=== PATIENT | female | born 1955 | race Caucasian/White ===

== ENCOUNTER 2018-05-27 11:18 | Day surgery (SDC) | payer BC ==
[~2018-05-27 11:18] MED LIST: Lactated Ringers 1,000 ML IV SCH; Lidocaine 2% 5 ML SDV ONE; Propofol 200 MG/20 ML SDV ONE; Sodium Chloride 0.9% 10 ML Syringe FLUSH PRN; Sodium Chloride 0.9% 2.5 ML Syringe FLUSH PRN; fentaNYL 100 MCG/2 ML SDV ONE
--- NOTE | 2018-05-27 12:03 | PCM.PREANE ---
Preanesthetic Assessment - Anesthesia/Transfusion/Family Hx Anesthesia History: Prior Anesthesia Without Reaction Other Type of Anesthesia Reaction Comment: Denies any known problem in past, hx : motion sickness Family History of Anesthesia Reaction: No Transfusion History: No Prior Transfusion(s) - Review of Systems General: No Symptoms Pulmonary: No Symptoms Cardiovascular: No Symptoms Gastrointestinal: No Symptoms Neurological: No Symptoms Other: Reports: None - Physical Assessment NPO Status Date: 05/26/18 Height: 5 ft 9 in Weight: 103.873 kg ASA Class: 2 Mental Status: Alert & Oriented x3 Airway Class: Mallampati = 1 Dentition: Reports: Normal Dentition ROM/Head Extension: Full Lungs: Clear to Auscultation, Normal Respiratory Effort Cardiovascular: Regular Rate, Regular Rhythm - Allergies Allergies/Adverse Reactions: Allergies Allergy/AdvReac Type Severity Reaction Status Date / Time Sulfa (Sulfonamide Allergy Itching Verified 05/25/18 16:48 Antibiotics) Oral pill to treat toenail Allergy Cannot Uncoded 05/25/18 16:48 fungus Remember - Blood Blood Available: No - Anesthesia Plan Pre-Op Medication Ordered: None - Acknowledgements Anesthesia Type Planned: MAC Pt an Appropriate Candidate for the Planned Anesthesia: Yes Alternatives and Risks of Anesthesia Discussed w Pt/Guardian: Yes Pt/Guardian Understands and Agrees with Anesthesia Plan: Yes Additional Comments: PMH: gerd, thyroid replacement PLAN: MAC/TIVA PreAnesthesia Questionnaire HEENT History: Reports: Allergic Rhinitis, Cataract, Retinal Detachment Other HEENT History: Reports several eye surgeries, current eye drops decreasing use of Prednisolone Sod Phos 1% 1 drop Left Eye every other day, Reports chronic nasal congestion from external allergies Cardiovascular History: Reports: None Respiratory History: Reports: None Other Respiratory History: 8-10 yr history of smoking, Quit almost 40 yrs ago Gastrointestinal History: Reports: Colon Polyp, Diverticulosis, GERD Other Gastrointestinal History: Occasional Heartburn/reflux, treat Pepcid AC OTC Genitourinary History: Reports: None 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 Other OB/BYN History: as above history Hysterectomy Musculoskeletal History: Reports: None Other Musculoskeletal History: hx: fractured foot Neurological History: Reports: None Psychiatric History: Reports: None Endocrine/Metabolic History: Reports: Hypothyroidism, Obesity/BMI 30+ Hematologic History: Reports: None Immunologic History: Reports: None Oncologic (Cancer) History: Reports: None Dermatologic History: Reports: Other (See Below) Other Dermatologic History: currently has a scalp lesion- possible fungus ( using medicated shampoo) - Past Surgical History Head Surgeries/Procedures: Reports: None HEENT Surgical History: Reports: Cataract Surgery, Laser Surgery GI Surgical History: Reports: Appendectomy, Colonoscopy Female Surgical History: Reports: Hysterectomy - SUBSTANCE USE Smoking Status *Q: Former Smoker Tobacco Use Within Last Twelve Months: No Recreational Drug Use History: No - HOME MEDS Home Medications: Home Meds Levothyroxine Sodium [Synthroid] 25 mcg PO ASDIRECTED 05/24/18 [History] Levothyroxine 50 mcg PO ASDIRECTED 05/25/18 [History] - CURRENT (IN HOUSE) MEDS Current Meds: Current Medications Lactated Ringer's (Ringers, Lactated) 1,000 mls @ 125 mls/hr IV ASDIRECTED LESLY Sodium Chloride (Saline Flush) 10 ml FLUSH ASDIRECTED PRN PRN Reason: Keep Vein Open Sodium Chloride (Saline Flush) 2.5 ml FLUSH ASDIRECTED PRN PRN Reason: Keep Vein Open Sodium Chloride (Saline Flush) 10 ml FLUSH ASDIRECTED PRN PRN Reason: Keep Vein Open Sodium Chloride (Saline Flush) 2.5 ml FLUSH ASDIRECTED PRN PRN Reason: Keep Vein Open Discontinued Medications Fentanyl (Sublimaze) Confirm Administered Dose 100 mcg .ROUTE .STK-MED ONE Stop: 05/27/18 08:34 Lidocaine (Xylocaine-Mpf 2%) Confirm Administered Dose 5 ml .ROUTE .STK-MED ONE Stop: 05/27/18 08:34 Propofol (Diprivan 20 Ml) Confirm Administered Dose 400 mg .ROUTE .STK-MED ONE Stop: 05/27/18 08:34
--- NOTE | 2018-05-27 13:28 | PCM.OPNOTE ---
- General Post-Op/Procedure Note Date of Surgery/Procedure: 05/27/18 Operative Procedure(s): Colonoscopy Findings: normal Colonoscopy Pre Op Diagnosis: History of colon polyp Post-Op Diagnosis: Normal colonoscopy Anesthesia Technique: MAC Primary Surgeon: Haylee Childress Condition: Good
--- NOTE | 2018-05-27 13:43 | PCM.POSTAN ---
POST ANESTHESIA ASSESSMENT - MENTAL STATUS Mental Status: Alert, Oriented - RESPIRATORY Respiratory Status: Respiratory Rate WNL, Airway Patent, O2 Saturation Stable - CARDIOVASCULAR CV Status: Pulse Rate WNL, Blood Pressure Stable - GASTROINTESTINAL GI Status: No Symptoms - POST OP HYDRATION Hydration Status: Adequate & Stable
--- NOTE | 2018-05-27 13:48 | PCM48HPAN ---
Post Anesthesia Note - EVALUATION WITHIN 48HRS OF ANESTHETIC Vital Signs in Normal Range: Yes Patient Participated in Evaluation: Yes Respiratory Function Stable: Yes Airway Patent: Yes Cardiovascular Function Stable: Yes Hydration Status Stable: Yes Pain Control Satisfactory: Yes Nausea and Vomiting Control Satisfactory: Yes Mental Status Recovered: Yes Resp Rate: 17
[2018-05-27 14:46] VITALS: BP 117/63
--- NOTE | 2018-05-28 13:54 | OR ---
SURGEON: YOLANDA SPIVEY MD DATE OF PROCEDURE: 05/27/2018 PREOPERATIVE DIAGNOSIS: History of colon polyps. POSTOPERATIVE DIAGNOSIS: Diverticulosis PROCEDURE PERFORMED: Screening colonoscopy. ANESTHESIA: MAC. INSTRUMENT USED: Olympus colonoscope. EXTENT OF EXAM: To the cecum. PREPARATION: Good. LIMITATIONS: None. 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 It is time for her to undergo a repeat colonoscopy. I explained the procedure, expected perioperative course, and risks including bleeding, infection, or damage to surrounding structures including perforation. The patient verbalized understanding and wishes to proceed. PROCEDURE IN DETAIL: The patient was brought into the endoscopy suite and placed in the left lateral decubitus position. A time-out was completed verifying the patient's name, age, date of , allergies, and procedure to be performed. Monitored anesthesia care was induced and continuous oxygen was provided via nasal cannula throughout the procedure. After adequate sedation was achieved, a digital rectal exam was performed. The exam was within normal limits. A well lubricated colonoscope was inserted into the rectum and advanced under direct visualization to the level of the cecum. The cecum was identified by both visual and anatomic landmarks. Photograph was taken of the cecal cap; however, I was unable to retroflex the scope within the cecum due to looping of the scope more proximally. The scope was then fully withdrawn while examining the color, texture, anatomy, and integrity of the mucosa from the cecum to the anal canal. She had diverticulosis throughout the sigmoid colon. I closely inspected the sigmoid colon twice and did not see any signs of any further polyps. The scope was then brought into the rectum and retroflexed to allow visualization of the anal canal opening. This appeared normal and a photograph was taken. The scope was then straightened out and fully withdrawn. The cecum to anus time was 8 minutes. The patient tolerated the procedure well and was taken to PACU in stable condition. ENDOSCOPIC DIAGNOSIS: Diverticulosis RECOMMENDATIONS: Follow up in clinic in 5 years. Patient and I have already visited about her diverticulosis diagnosis. CATERINA WILLOUGHBY /[id number] MTDPeter
== END 2018-05-27 14:10 | disposition home or self-care (01) ==
LOC: MW.SDS 11:18
PROVIDERS: ATTEND Surgery
DX: Z12.11 Encounter for screening for malignant neoplasm of colon (principal); K57.30 Diverticulosis of large intestine without perforation or abscess without bleeding; E66.9 Obesity, unspecified; J30.9 Allergic rhinitis, unspecified; E03.9 Hypothyroidism, unspecified; K21.9 Gastro-esophageal reflux disease without esophagitis; Z86.010 Personal history of colon polyps; Z88.2 Allergy status to sulfonamides; Z79.899 Other long term (current) drug therapy; Z87.891 Personal history of nicotine dependence; Z68.33 Body mass index [BMI] 33.0-33.9, adult
CPT/HCPCS: 45378; J2001; J2704; J3010; J7120

== ENCOUNTER 2018-07-02 17:35 | Emergency (ER) | payer BC ==
--- NOTE | 2018-07-02 18:23 | CR ---
Indication: Pain. Dizziness. Lightheaded. Extremity tingling. Chest pain. Left jaw pain. Technique: A single AP portable view of the chest was obtained. Comparison: None Findings: The heart is normal in size. The lungs are clear. No infiltrate, pleural effusion, or pneumothorax is identified. Impression: No acute cardiopulmonary process. Dictated by Rena Dorsey MD @ Jul 02 2018 6:15PM Signed by Dr. Rena oDrsey @ Jul 02 2018 6:22PM
[2018-07-02 18:28] LABS: CHLORIDE,CL 101 mmol/L (98-107); SODIUM,NA 137 mmol/L (136-145)
--- NOTE | 2018-07-02 18:31 | EDM.PDOC ---
ED HPI GENERAL MEDICAL PROBLEM - General Chief Complaint: Chest Pain Stated Complaint: PAIN IN CHEST, BLOOD PRESSURE Time Seen by Provider: 07/02/18 18:01 Source of Information: Reports: Patient History Limitations: Reports: No Limitations - History of Present Illness INITIAL COMMENTS - FREE TEXT/NARRATIVE: HISTORY AND PHYSICAL: History of present illness: Patient is a 62-year-old female who presents to the emergency room with complaints of midsternal chest pain and heartburn and belching intermittently over the past 2 weeks. She states that she notices this occur approximately one hour after eating and lasts about 10 minutes. She thought this initially was indigestion but since it was more midsternal discomfort; she wanted to come and be evaluated. She states she currently has no pain. She denies any fever, chills , current chest pain, shortness of breath or cough. She denies any abdominal pain, nausea, vomiting, diarrhea, constipation or dysuria. She states she has been eating and drinking appropriately. Review of systems: As per history of present illness and below otherwise all systems reviewed and negative. Past medical history: As per history of present illness and as reviewed below otherwise noncontributory. Surgical history: As per history of present illness and as reviewed below otherwise noncontributory. Social history: See social history for further information Family history: As per history of present illness and as reviewed below otherwise noncontributory. Physical exam: General: Well-developed and well-nourished 62-year-old female. Alert and oriented. Nontoxic appearing and in no acute distress. HEENT: Atraumatic, normocephalic, pupils equal and reactive bilaterally, negative for conjunctival pallor or scleral icterus, mucous membranes moist, TMs normal bilaterally, throat clear, neck supple, nontender, trachea midline. No drooling or trismus noted. No meningeal signs. No hot potato voice noted. Lungs: Clear to auscultation, breath sounds equal bilaterally, chest nontender. Heart: S1S2, regular rate and rhythm without overt murmur Abdomen: Soft, nondistended, mild right upper quadrant tenderness. Negative for masses or hepatosplenomegaly. Negative for costovertebral tenderness. Pelvis: Stable nontender. Genitourinary: Deferred. Rectal: Deferred. Skin: Intact, warm, dry. No lesions or rashes noted. Extremities: Atraumatic, negative for cords or calf pain. Neurovascular unremarkable. Neuro: Awake, alert, oriented. Cranial nerves II through XII unremarkable. Cerebellum unremarkable. Motor and sensory unremarkable throughout. Exam nonfocal. Notes: After talking with the patient it does sound like this may be gallbladder related but she reports she is more concerned to make sure "it's not my heart" Lab work is within normal limits. EKG shows no acute findings. Her vital signs remain stable. Denies any pain while being here in the emergency room. Her diagnostic results were reviewed and discussed with the patient. Our hospital is at maximum capacity and we are not able to admit anyone at this time. I did offer to transfer the patient for continued observation of her symptoms. She declines, stating she has had no symptoms or pain while being here in the emergency room and would like to be discharged to home. I did encourage her to follow-up with her primary care provider and Gen. surgery if she continues to have the GI/chest discomfort. He she will return to the emergency room if intends return or worsen, or new symptoms develop. Denies any further questions or concerns at this time. Diagnostics: CBC, CMP, EKG, troponin, chest x-ray, TSH, H. pylori, lipase Therapeutics: GI cocktail (declined) Prescription: None Impression: Atypical chest pain Plan: 1. Please take an aspirin 81mg once daily 2. Please avoid any fatty foods as we discussed. Would like you to follow-up with the general surgeon for further evaluation of your gallbladder. 3. Return to the ED as needed and as discussed. Definitive disposition and diagnosis as appropriate pending reevaluation and review of above. - Related Data Allergies Allergy/AdvReac Type Severity Reaction Status Date / Time Sulfa (Sulfonamide Allergy Itching Verified 07/02/18 17:47 Antibiotics) Oral pill to treat toenail Allergy Cannot Uncoded 07/02/18 17:47 fungus Remember Home Meds: Home Meds Levothyroxine Sodium [Synthroid] 25 mcg PO ASDIRECTED 05/24/18 [History] Levothyroxine 50 mcg PO ASDIRECTED 05/25/18 [History] Past Medical History HEENT History: Reports: Allergic Rhinitis, Cataract, Retinal Detachment Other HEENT History: Reports several eye surgeries, current eye drops decreasing use of Prednisolone Sod Phos 1% 1 drop Left Eye every other day, Reports chronic nasal congestion from external allergies Cardiovascular History: Reports: None Respiratory History: Reports: None Other Respiratory History: 8-10 yr history of smoking, Quit almost 40 yrs ago Gastrointestinal History: Reports: Colon Polyp, Diverticulosis, GERD Other Gastrointestinal History: Occasional Heartburn/reflux, treat Pepcid AC OTC Genitourinary History: Reports: None 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 Other PAPERBOARD BOX MAKER History: as above history Hysterectomy Musculoskeletal History: Reports: None Other Musculoskeletal History: hx: fractured foot Neurological History: Reports: None Psychiatric History: Reports: None Endocrine/Metabolic History: Reports: Hypothyroidism, Obesity/BMI 30+ Hematologic History: Reports: None Immunologic History: Reports: None Oncologic (Cancer) History: Reports: None Dermatologic History: Reports: Other (See Below) Other Dermatologic History: currently has a scalp lesion- possible fungus ( using medicated shampoo) - Infectious Disease History Infectious Disease History: Reports: Chicken Pox, Measles, Mumps - Past Surgical History Head Surgeries/Procedures: Reports: None HEENT Surgical History: Reports: Cataract Surgery, Laser Surgery Other HEENT Surgeries/Procedures: Several eye surgeries GI Surgical History: Reports: Appendectomy, Colonoscopy Female Surgical History: Reports: Hysterectomy Social & Family History - Family History Family Medical History: Noncontributory - Tobacco Use Smoking Status *Q: Never Smoker - Caffeine Use Caffeine Use: Reports: None - Recreational Drug Use Recreational Drug Use: No ED ROS GENERAL - Review of Systems Review Of Systems: ROS reveals no pertinent complaints other than HPI. ED EXAM, GENERAL - Physical Exam Exam: See Below (See dictation) Course - Vital Signs Last Recorded V/S: Last Vital Signs Temp 97.8 F 07/02/18 17:48 Pulse 81 07/02/18 17:48 Resp 18 07/02/18 17:48 BP 165/99 H 07/02/18 17:48 Pulse Ox 96 07/02/18 17:48 - Orders/Labs/Meds Orders: Active Orders 24 hr Category Date Time Status EKG 12 Lead [EKG Documentation Completion] [RC] STAT Care 07/02/18 17:36 Active Labs: Laboratory Tests 07/02/18 07/02/18 07/02/18 Range/Units 17:53 17:53 17:53 WBC 7.76 (4.0-11.0) K/uL RBC 4.68 (4.30-5.90) M/uL Hgb 13.9 (12.0-16.0) g/dL Hct 41.6 (36.0-46.0) % MCV 88.9 (80.0-98.0) fL MCH 29.7 (27.0-32.0) pg MCHC 33.4 (31.0-37.0) g/dL RDW Std Deviation 42.0 (28.0-62.0) fl RDW Coeff of [place] 13 (11.0-15.0) % Plt Count 243 (150-400) K/uL MPV 9.80 (7.40-12.00) fL Neut % (Auto) 60.6 (48.0-80.0) % Lymph % (Auto) 29.6 (16.0-40.0) % [place] % (Auto) 8.0 (0.0-15.0) % Eos % (Auto) 1.5 (0.0-7.0) % Baso % (Auto) 0.3 (0.0-1.5) % Neut # (Auto) 4.7 (1.4-5.7) K/uL Lymph # (Auto) 2.3 (0.6-2.4) K/uL [place] # (Auto) 0.6 (0.0-0.8) K/uL Eos # (Auto) 0.1 (0.0-0.7) K/uL Baso # (Auto) 0.0 (0.0-0.1) K/uL Nucleated RBC % 0.0 /100WBC Nucleated RBCs # 0 K/uL Sodium 137 (136-145) mmol/L Potassium 4.0 (3.5-5.1) mmol/L Chloride 101 (98-107) mmol/L Carbon Dioxide 25.7 (21.0-32.0) mmol/L BUN 17 (7.0-18.0) mg/dL Creatinine 1.0 (0.6-1.0) mg/dL Est Cr Clr Drug Dosing 59.40 mL/min Estimated GFR (MDRD) 55.8 ml/min Glucose 111 H (74-106) mg/dL Calcium 9.5 (8.5-10.1) mg/dL Total Bilirubin 0.5 (0.2-1.0) mg/dL AST 14 L (15-37) IU/L ALT 19 (14-63) IU/L Alkaline Phosphatase 80 (46-116) U/L Troponin I < 0.050 (0.000-0.056) ng/mL Total Protein 7.5 (6.4-8.2) g/dL Albumin 3.9 (3.4-5.0) g/dL Globulin 3.6 (2.6-4.0) g/dL Albumin/Globulin Ratio 1.1 (0.9-1.6) Lipase (73-393) U/L TSH 3rd Generation 2.15 (0.36-3.74) uIU/mL H. pylori IgG Antibody (NEG) 07/02/18 07/02/18 Range/Units 17:53 17:53 WBC (4.0-11.0) K/uL RBC (4.30-5.90) M/uL Hgb (12.0-16.0) g/dL Hct (36.0-46.0) % MCV (80.0-98.0) fL MCH (27.0-32.0) pg MCHC (31.0-37.0) g/dL RDW Std Deviation (28.0-62.0) fl RDW Coeff of [place] (11.0-15.0) % Plt Count (150-400) K/uL MPV (7.40-12.00) fL Neut % (Auto) (48.0-80.0) % Lymph % (Auto) (16.0-40.0) % [place] % (Auto) (0.0-15.0) % Eos % (Auto) (0.0-7.0) % Baso % (Auto) (0.0-1.5) % Neut # (Auto) (1.4-5.7) K/uL Lymph # (Auto) (0.6-2.4) K/uL [place] # (Auto) (0.0-0.8) K/uL Eos # (Auto) (0.0-0.7) K/uL Baso # (Auto) (0.0-0.1) K/uL Nucleated RBC % /100WBC Nucleated RBCs # K/uL Sodium (136-145) mmol/L Potassium (3.5-5.1) mmol/L Chloride (98-107) mmol/L Carbon Dioxide (21.0-32.0) mmol/L BUN (7.0-18.0) mg/dL Creatinine (0.6-1.0) mg/dL Est Cr Clr Drug Dosing mL/min Estimated GFR (MDRD) ml/min Glucose (74-106) mg/dL Calcium (8.5-10.1) mg/dL Total Bilirubin (0.2-1.0) mg/dL AST (15-37) IU/L ALT (14-63) IU/L Alkaline Phosphatase (46-116) U/L Troponin I (0.000-0.056) ng/mL Total Protein (6.4-8.2) g/dL Albumin (3.4-5.0) g/dL Globulin (2.6-4.0) g/dL Albumin/Globulin Ratio (0.9-1.6) Lipase 126 (73-393) U/L TSH 3rd Generation (0.36-3.74) uIU/mL H. pylori IgG Antibody NEGATIVE (NEG) Meds: Medications Discontinued Medications Generic Name Dose Route Start Last Admin Trade Name Freq PRN Reason Stop Dose Admin Al Hydroxide/Mg Hydroxide 15 0 ml 07/02/18 18:32 07/02/18 20:04 ml/ Metoclopramide HCl 5 mg/ PO 07/02/18 18:33 Not Given Lidocaine HCl 5 ml ONETIME ONE Departure - Departure Time of Disposition: 19:41 Disposition: Home, Self-Care 01 Clinical Impression: Atypical chest pain Instructions: Nonspecific Chest Pain Referrals: PCP,None [Primary Care Provider] - Forms: ED Department Discharge Additional Instructions: The following information is given to patients seen in the emergency department who are being discharged to home. This information is to outline your options for follow-up care. We provide all patients seen in our emergency department with a follow-up referral. The need for follow-up, as well as the timing and circumstances, are variable depending upon the specifics of your emergency department visit. If you don't have a primary care physician on staff, we will provide you with a referral. We always advise you to contact your personal physician following an emergency department visit to inform them of the circumstance of the visit and for follow-up with them and/or the need for any referrals to a consulting specialist. The emergency department will also refer you to a specialist when appropriate. This referral assures that you have the opportunity for follow-up care with a specialist. All of these measure are taken in an effort to provide you with optimal care, which includes your follow-up. Under all circumstances we always encourage you to contact your private physician who remains a resource for coordinating your care. When calling for follow-up care, please make the office aware that this follow-up is from your recent emergency room visit. If for any reason you are refused follow-up, please contact the [facility] Emergency Department at and asked to speak to the emergency department charge nurse. [facility] [address] [place] [id number] [id number] 1. Please take an aspirin 81mg once daily 2. Please avoid any fatty foods as we discussed. Would like you to follow-up with the general surgeon for further evaluation of your gallbladder. 3. Return to the ED as needed and as discussed. - My Orders Last 24 Hours: My Active Orders 07/02/18 17:36 EKG 12 Lead [EKG Documentation Completion] [] STAT - Assessment/Plan Last 24 Hours: My Active Orders 07/02/18 17:36 EKG 12 Lead [EKG Documentation Completion] [RC] STAT
[2018-07-02] MEDS: Alum Hydrox/Mag Hydrox/Simeth 15 ML, Metoclopramide 5 MG, Lidocaine 2% 5 ML PO ONE ×6 (20:01→20:04)
[2018-07-02 20:16] VITALS: BP 146/85
== END 2018-07-02 20:16 | disposition home or self-care (01) ==
LOC: MW.ED 17:35
DX: R07.89 Other chest pain (principal); Z88.2 Allergy status to sulfonamides; Z88.8 Allergy status to other drugs, medicaments and biological substances; Z87.891 Personal history of nicotine dependence
CPT/HCPCS: 36415; 71045; 71045-26; 80053; 83690; 84443; 84484; 85025; 86677; 93005; 99285-25; A9270-GY

== ENCOUNTER 2019-07-01 18:21 | Observation (INO) | payer BC, MEDICARE ==
[2019-07-01] MEDS ORDERED: Ondansetron 4 MG Tab.DIS PO ONE (18:54)
[2019-07-01] MEDS ORDERED: Sodium Chloride 0.9% 1,000 ML IV ONE ×2 (19:06→21:26)
[2019-07-01] MEDS ORDERED: Sodium Chloride 0.9% 10 ML Syringe FLUSH PRN (19:06)
[2019-07-01] MEDS ORDERED: Sodium Chloride 0.9% 2.5 ML Syringe FLUSH PRN (19:06)
[2019-07-01] MEDS ORDERED: Ondansetron 4 MG/2 ML SDV IVPUSH ONE ×2 (19:18→20:09)
--- NOTE | 2019-07-01 19:18 | EDM.PDOC ---
ED HPI GENERAL MEDICAL PROBLEM - General Chief Complaint: Respiratory Problem Stated Complaint: FLU SYMPTOMS Time Seen by Provider: 07/01/19 19:12 Source of Information: Reports: Patient History Limitations: Reports: No Limitations - History of Present Illness INITIAL COMMENTS - FREE TEXT/NARRATIVE: HISTORY AND PHYSICAL: History of present illness: Patient is a 63-year-old female presents to the ED with complaint of vomiting. Patient states she has had nausea and vomiting x 4 days. She states she has family members who had similar symptoms but states theirs lasted 24 hours and hers has not gotten better. She states today she developed abdominal pain that comes and goes. She denies fevers, chills, cough. She states she had some diarrhea initially but this has since resolved. She reports a small formed nonbloody bowel movement today. She denies significant past medical or surgical history. Denies alcohol use. Review of systems: As per history of present illness and below otherwise all systems reviewed and negative. Past medical history: As per history of present illness and as reviewed below otherwise noncontributory. Surgical history: As per history of present illness and as reviewed below otherwise noncontributory. Social history: No reported history of drug or alcohol abuse. Family history: As per history of present illness and as reviewed below otherwise noncontributory. Physical exam: General: Patient sitting comfortably in no acute distress and nontoxic appearing HEENT: Atraumatic, normocephalic, pupils reactive, negative for conjunctival pallor or scleral icterus, mucous membranes moist, throat clear, neck supple, nontender, trachea midline. No meningeal signs. Lungs: Clear to auscultation, breath sounds equal bilaterally, chest nontender. Heart: S1S2, regular, negative for clicks, rubs, or overt murmur. Abdomen: Soft, nondistended. Mild right abdominal tenderness to palpation. Negative for masses or hepatosplenomegaly. Negative for costovertebral tenderness. No rigidity, rebound, guarding. Pelvis: Stable nontender. Genitourinary: Deferred. Rectal: Deferred. Extremities: Atraumatic, negative for cords or calf pain. Neurovascular unremarkable. Neuro: Awake, alert, oriented. Cranial nerves II through XII unremarkable. Cerebellum unremarkable. Motor and sensory unremarkable throughout. Exam nonfocal. Notes: Diagnostics: CBC, CMP, lipase, US abdomen RUQ Therapeutics: 1L NS IV 4mg zofran IV x 2 1L NS IV maintenance Prescriptions: Impression: Intractable nausea/vomiting, transaminitis Plan: Discussed with Dr. Royal, patient will be admitted to observation. Definitive disposition and diagnosis as appropriate pending reevaluation and review of above. - Related Data Allergies Allergy/AdvReac Type Severity Reaction Status Date / Time Sulfa (Sulfonamide Allergy Itching Verified 07/01/19 18:29 Antibiotics) Oral pill to treat toenail Allergy Cannot Uncoded 07/01/19 18:29 fungus Remember Home Meds: Home Meds Levothyroxine Sodium [Synthroid] 25 mcg PO ASDIRECTED 05/24/18 [History] Levothyroxine 50 mcg PO ASDIRECTED 05/25/18 [History] Past Medical History HEENT History: Reports: Allergic Rhinitis, Cataract, Retinal Detachment Other HEENT History: Reports several eye surgeries, current eye drops decreasing use of Prednisolone Sod Phos 1% 1 drop Left Eye every other day, Reports chronic nasal congestion from external allergies Cardiovascular History: Reports: None Respiratory History: Reports: None Other Respiratory History: 8-10 yr history of smoking, Quit almost 40 yrs ago Gastrointestinal History: Reports: Colon Polyp, Diverticulosis, GERD Other Gastrointestinal History: Occasional Heartburn/reflux, treat Pepcid AC OTC Genitourinary History: Reports: None CUSTOMER SERVICE SUPERVISOR History: Reports: None Other CUSTOMER SERVICE SUPERVISOR History: as above history Hysterectomy Musculoskeletal History: Reports: None Other Musculoskeletal History: hx: fractured foot Neurological History: Reports: None Psychiatric History: Reports: None Endocrine/Metabolic History: Reports: Hypothyroidism, Obesity/BMI 30+ Hematologic History: Reports: None Immunologic History: Reports: None Oncologic (Cancer) History: Reports: None Dermatologic History: Reports: Other (See Below) Other Dermatologic History: currently has a scalp lesion- possible fungus ( using medicated shampoo) - Infectious Disease History Infectious Disease History: Reports: Chicken Pox, Measles - Past Surgical History Head Surgeries/Procedures: Reports: None HEENT Surgical History: Reports: Cataract Surgery, Laser Surgery Other HEENT Surgeries/Procedures: Several eye surgeries GI Surgical History: Reports: Appendectomy, Colonoscopy Female Surgical History: Reports: Hysterectomy Social & Family History - Family History Family Medical History: Noncontributory - Tobacco Use Smoking Status *Q: Former Smoker Used Tobacco, but Quit: Yes Month/Year Tobacco Last Used: 1979 - Caffeine Use Caffeine Use: Reports: Coffee, Soda, Tea - Recreational Drug Use Recreational Drug Use: No ED ROS GENERAL - Review of Systems Review Of Systems: Comprehensive ROS is negative, except as noted in HPI. ED EXAM, GENERAL - Physical Exam Exam: See Below (see dictation) Course - Vital Signs Last Recorded V/S: Last Vital Signs Temp 96.2 F L 07/01/19 18:31 Pulse 57 L 07/01/19 20:24 Resp 18 07/01/19 20:24 BP 127/82 07/01/19 20:24 Pulse Ox 96 07/01/19 20:24 - Orders/Labs/Meds Orders: Active Orders 24 hr Category Date Time Status Sodium Chloride 0.9% [Saline Flush] Med 07/01/19 19:06 Active 10 ml FLUSH ASDIRECTED PRN Sodium Chloride 0.9% [Saline Flush] Med 07/01/19 19:06 Active 2.5 ml FLUSH ASDIRECTED PRN Saline Lock Insert [OM.PC] Stat Oth 07/01/19 19:06 Ordered Medication Orders Sodium Chloride (Saline Flush) 10 ml FLUSH ASDIRECTED PRN PRN Reason: Keep Vein Open Sodium Chloride (Saline Flush) 2.5 ml FLUSH ASDIRECTED PRN PRN Reason: Keep Vein Open Labs: Laboratory Tests 07/01/19 07/01/19 07/01/19 Range/Units 19:25 19:25 21:00 WBC 5.24 (4.0-11.0) K/uL RBC 5.04 (4.30-5.90) M/uL Hgb 14.4 (12.0-16.0) g/dL Hct 43.2 (36.0-46.0) % MCV 85.7 (80.0-98.0) fL MCH 28.6 (27.0-32.0) pg MCHC 33.3 (31.0-37.0) g/dL RDW Std Deviation 41.6 (28.0-62.0) fl RDW Coeff of [place] 13 (11.0-15.0) % Plt Count 212 (150-400) K/uL MPV 10.00 (7.40-12.00) fL Neut % (Auto) 54.9 (48.0-80.0) % Lymph % (Auto) 34.7 (16.0-40.0) % [place] % (Auto) 9.2 (0.0-15.0) % Eos % (Auto) 0.8 (0.0-7.0) % Baso % (Auto) 0.4 (0.0-1.5) % Neut # (Auto) 2.9 (1.4-5.7) K/uL Lymph # (Auto) 1.8 (0.6-2.4) K/uL [place] # (Auto) 0.5 (0.0-0.8) K/uL Eos # (Auto) 0.0 (0.0-0.7) K/uL Baso # (Auto) 0.0 (0.0-0.1) K/uL Nucleated RBC % 0.0 /100WBC Nucleated RBCs # 0 K/uL Sodium 140 (136-145) mmol/L Potassium 3.1 L (3.5-5.1) mmol/L Chloride 101 (98-107) mmol/L Carbon Dioxide 27.3 (21.0-32.0) mmol/L BUN 9 (7.0-18.0) mg/dL Creatinine 1.0 (0.6-1.0) mg/dL Est Cr Clr Drug Dosing 58.61 mL/min Estimated GFR (MDRD) 55.6 ml/min Glucose 151 H (74-106) mg/dL Calcium 8.9 (8.5-10.1) mg/dL Total Bilirubin 1.0 (0.2-1.0) mg/dL AST 155 H (15-37) IU/L ALT 115 H (14-63) IU/L Alkaline Phosphatase 126 H (46-116) U/L Total Protein 7.4 (6.4-8.2) g/dL Albumin 3.7 (3.4-5.0) g/dL Globulin 3.7 (2.6-4.0) g/dL Albumin/Globulin Ratio 1.0 (0.9-1.6) Lipase 116 (73-393) U/L Urine Color YELLOW Urine Appearance SLT CLOUDY Urine pH 5.5 (5.0-8.0) Ur Specific [place] >= 1.030 (1.001-1.035) Urine Protein NEGATIVE (NEGATIVE) mg/dL Urine Glucose (UA) NEGATIVE (NEGATIVE) mg/dL Urine Ketones TRACE H (NEGATIVE) mg/dL Urine Occult Blood TRACE-INTACT H (NEGATIVE) Urine Nitrite NEGATIVE (NEGATIVE) Urine Bilirubin SMALL H (NEGATIVE) Urine Ictotest NEGATIVE Urine Urobilinogen 0.2 (<2.0) EU/dL Ur Leukocyte Esterase NEGATIVE (NEGATIVE) U Hyaline Cast (Auto) 0-1 (0-2/LPF) Urine RBC 0-2 (0-2/HPF) Urine WBC 0-1 (0-5/HPF) Ur Epithelial Cells FEW (NONE-FEW) Urine Bacteria FEW (NEGATIVE) Urine Mucus LIGHT (NONE-MOD) Meds: Medications Generic Name Dose Route Start Last Admin Trade Name Freq PRN Reason Stop Dose Admin Sodium Chloride 10 ml 07/01/19 19:06 Saline Flush FLUSH ASDIRECTED PRN Keep Vein Open Sodium Chloride 2.5 ml 07/01/19 19:06 Saline Flush FLUSH ASDIRECTED PRN Keep Vein Open Discontinued Medications Generic Name Dose Route Start Last Admin Trade Name Freq PRN Reason Stop Dose Admin Sodium Chloride 1,000 mls @ 999 mls/hr 07/01/19 19:06 07/01/19 19:31 Normal Saline IV 07/01/19 20:06 999 mls/hr STAT ONE Administration Ondansetron HCl 4 mg 07/01/19 18:54 07/01/19 19:32 Zofran Odt PO 07/01/19 18:55 Not Given STAT ONE Ondansetron HCl 4 mg 07/01/19 19:18 07/01/19 19:31 Zofran IVPUSH 07/01/19 19:19 4 mg ONETIME ONE Administration Ondansetron HCl 4 mg 07/01/19 20:09 07/01/19 20:19 Zofran IVPUSH 07/01/19 20:10 4 mg ONETIME ONE Administration Departure - Departure Time of Disposition: 21:31 Disposition: Refer to Observation Condition: Good Clinical Impression: Intractable nausea and vomiting, Transaminitis - Discharge Information Referrals: PCP,None [Primary Care Provider] - Forms: ED Department Discharge Sepsis Event Note - Evaluation Sepsis Screening Result: No Definite Risk - Focused Exam Vital Signs: Vital Signs Temp Pulse Resp BP Pulse Ox 07/01/19 20:24 57 L 18 127/82 96 07/01/19 18:31 96.2 F L 80 19 143/99 H 96 Date Exam was Performed: 07/01/19 Time Exam was Performed: 21:26 - My Orders Last 24 Hours: My Active Orders 07/01/19 19:06 Sodium Chloride 0.9% [Saline Flush] 10 ml FLUSH ASDIRECTED PRN Sodium Chloride 0.9% [Saline Flush] 2.5 ml FLUSH ASDIRECTED PRN Saline Lock Insert [OM.PC] Stat - Assessment/Plan Last 24 Hours: My Active Orders 07/01/19 19:06 Sodium Chloride 0.9% [Saline Flush] 10 ml FLUSH ASDIRECTED PRN Sodium Chloride 0.9% [Saline Flush] 2.5 ml FLUSH ASDIRECTED PRN Saline Lock Insert [OM.PC] Stat
[2019-07-01 19:56] LABS: CARBON DIOXIDE,CO2 27.3 mmol/L (21.0-32.0); POTASSIUM,K 3.1 mmol/L (3.5-5.1)
--- NOTE | 2019-07-01 21:06 | US ---
Right upper quadrant abdominal ultrasound: Multiple real-time images of the upper right abdomen were obtained. Comparison: Previous CT abdomen and pelvis study of 09/30/18. Pancreas is incompletely seen. Visualized portions of the pancreas shows no discrete abnormality. Liver shows no focal abnormality. Right kidney shows no hydronephrosis or mass. Right kidney has a length of 10.6 cm. Gallbladder contains no shadowing gallstones. No gallbladder wall thickening or biliary duct dilatation is seen. Impression: 1. No abnormality is appreciated on right upper quadrant abdominal ultrasound. Diagnostic code #1 This report was dictated in [place] Standard Time
[2019-07-01] MEDS ORDERED: Metoclopramide 10 MG/2 ML SDV IV ONE (21:49)
[2019-07-01] MEDS ORDERED: Albuterol/Ipratropium 3.0-0.5 MG/3 ML Neb Soln NEB PRN (22:38)
[2019-07-01] MEDS ORDERED: Morphine 2 MG/ML Syringe IV PRN (23:00)
--- NOTE | 2019-07-01 23:01 | PCM.HP.2 ---
H&P History of Present Illness - General Date of Service: 07/01/19 Admit Problem/Dx: Admission Diagnosis/Problem Admission Diagnosis/Problem Nausea and vomiting - History of Present Illness Initial Comments - Free Text/Narative: Patient is a 63-year-old female who presents to the ED secondary to nausea and vomiting which has been on going for 4 days. Patient has not been able to keep anything to keep down for past few days, patient also c/o intermittent abdominal pain. . she has family members who had similar symptoms but their symptoms improved after a day or so but her symptoms persisted. She denies fevers, chills, cough. She states she had some diarrhea initially but this has since resolved. She reports a small formed nonbloody bowel movement today. Denies alcohol use. She denies significant past medical or surgical history. Patient was found to have abnormal LFTS in ER. US of liver was unremarkable, lipase was normal. Patient received Reglan and Zofran but her symptoms didn't improve much so she was admitted for management of intractable N/V. Onset of Symptoms: Reports: Gradual Duration of Symptoms: Reports: Day(s): - Related Data Allergies/Adverse Reactions: Allergies Allergy/AdvReac Type Severity Reaction Status Date / Time Sulfa (Sulfonamide Allergy Itching Verified 07/01/19 22:51 Antibiotics) Oral pill to treat toenail Allergy Cannot Uncoded 07/01/19 22:51 fungus Remember Home Medications: Home Meds Levothyroxine Sodium [Synthroid] 25 mcg PO ASDIRECTED 05/24/18 [History] Levothyroxine 50 mcg PO ASDIRECTED 05/25/18 [History] Past Medical History HEENT History: Reports: Allergic Rhinitis, Cataract, Retinal Detachment Other HEENT History: Reports several eye surgeries, current eye drops decreasing use of Prednisolone Sod Phos 1% 1 drop Left Eye every other day, Reports chronic nasal congestion from external allergies Cardiovascular History: Reports: None Respiratory History: Reports: None Other Respiratory History: 8-10 yr history of smoking, Quit almost 40 yrs ago Gastrointestinal History: Reports: Colon Polyp, Diverticulosis, GERD Other Gastrointestinal History: Occasional Heartburn/reflux, treat Pepcid AC OTC Genitourinary History: Reports: None PARALEGAL SUPERVISOR History: Reports: None Other OB/BYN History: as above history Hysterectomy Musculoskeletal History: Reports: None Other Musculoskeletal History: hx: fractured foot Neurological History: Reports: None Psychiatric History: Reports: None Endocrine/Metabolic History: Reports: Hypothyroidism, Obesity/BMI 30+ Hematologic History: Reports: None Immunologic History: Reports: None Oncologic (Cancer) History: Reports: None Dermatologic History: Reports: Other (See Below) Other Dermatologic History: currently has a scalp lesion- possible fungus ( using medicated shampoo) - Infectious Disease History Infectious Disease History: Reports: Chicken Pox, Measles - Past Surgical History Head Surgeries/Procedures: Reports: None HEENT Surgical History: Reports: Cataract Surgery, Laser Surgery Other HEENT Surgeries/Procedures: Several eye surgeries GI Surgical History: Reports: Appendectomy, Colonoscopy Female Surgical History: Reports: Hysterectomy Social & Family History - Family History Family Medical History: Noncontributory - Tobacco Use Smoking Status *Q: Former Smoker Used Tobacco, but Quit: Yes Month/Year Tobacco Last Used: 1979 - Caffeine Use Caffeine Use: Reports: Coffee, Soda, Tea - Recreational Drug Use Recreational Drug Use: No H&P Review of Systems - Review of Systems: Review Of Systems: See Below General: Reports: Malaise, Weakness, Fatigue. Denies: Fever, Chills, Night Sweats Pulmonary: Denies: Shortness of Breath, Wheezing, Pleuritic Chest Pain Cardiovascular: Denies: Chest Pain, Palpitations, Dyspnea on Exertion Gastrointestinal: Reports: Abdominal Pain, Anorexia, Decreased Appetite, Nausea , Vomiting. Denies: Black Stool, Bloody Stool, Constipation, Diarrhea, Difficulty Swallowing, Distension, Melena, Mucous in Stool Genitourinary: Denies: Dysuria, Frequency, Burning Musculoskeletal: Denies: Neck Pain, Shoulder Pain, Arm Pain Skin: Denies: Cyanosis, Jaundice, Mottled Psychiatric: Denies: Confusion, Depression, Mood Lability, Anxiety Neurological: Denies: Confusion, Dizziness, Headache, Numbness Hematologic/Lymphatic: Denies: Anemia, Easy Bleeding, Easy Bruising, Swollen Glands Exam - Vital Signs Vital Signs: Last Vital Signs Temp 35.7 C L 07/01/19 18:31 Pulse 57 L 07/01/19 21:30 Resp 18 07/01/19 21:30 BP 117/78 07/01/19 21:30 Pulse Ox 96 07/01/19 21:30 Weight: 90.718 kg - Exam General: Alert, Oriented Neck: Supple, Trachea Midline Lungs: Clear to Auscultation, Normal Respiratory Effort Cardiovascular: Regular Rate, Regular Rhythm, Normal S1, Normal S2 GI/Abdominal Exam: Normal Bowel Sounds, Soft, No Distention, Guarding, Tender Neurological: Cranial Nerves Intact Neuro Extensive - Mental Status: Alert, Oriented x3, Normal Mood/Affect Neuro Extensive - Motor, Sensory, Reflexes: CN II-XII Intact - Patient Data Lab Results Last 24 hrs: Laboratory Results - last 24 hr 07/01/19 07/01/19 07/01/19 Range/Units 19:25 19:25 21:00 WBC 5.24 (4.0-11.0) K/uL RBC 5.04 (4.30-5.90) M/uL Hgb 14.4 (12.0-16.0) g/dL Hct 43.2 (36.0-46.0) % MCV 85.7 (80.0-98.0) fL MCH 28.6 (27.0-32.0) pg MCHC 33.3 (31.0-37.0) g/dL RDW Std Deviation 41.6 (28.0-62.0) fl RDW Coeff of [place] 13 (11.0-15.0) % Plt Count 212 (150-400) K/uL MPV 10.00 (7.40-12.00) fL Neut % (Auto) 54.9 (48.0-80.0) % Lymph % (Auto) 34.7 (16.0-40.0) % [place] % (Auto) 9.2 (0.0-15.0) % Eos % (Auto) 0.8 (0.0-7.0) % Baso % (Auto) 0.4 (0.0-1.5) % Neut # (Auto) 2.9 (1.4-5.7) K/uL Lymph # (Auto) 1.8 (0.6-2.4) K/uL [place] # (Auto) 0.5 (0.0-0.8) K/uL Eos # (Auto) 0.0 (0.0-0.7) K/uL Baso # (Auto) 0.0 (0.0-0.1) K/uL Nucleated RBC % 0.0 /100WBC Nucleated RBCs # 0 K/uL Sodium 140 (136-145) mmol/L Potassium 3.1 L (3.5-5.1) mmol/L Chloride 101 (98-107) mmol/L Carbon Dioxide 27.3 (21.0-32.0) mmol/L BUN 9 (7.0-18.0) mg/dL Creatinine 1.0 (0.6-1.0) mg/dL Est Cr Clr Drug Dosing 58.61 mL/min Estimated GFR (MDRD) 55.6 ml/min Glucose 151 H (74-106) mg/dL Calcium 8.9 (8.5-10.1) mg/dL Total Bilirubin 1.0 (0.2-1.0) mg/dL AST 155 H (15-37) IU/L ALT 115 H (14-63) IU/L Alkaline Phosphatase 126 H (46-116) U/L Total Protein 7.4 (6.4-8.2) g/dL Albumin 3.7 (3.4-5.0) g/dL Globulin 3.7 (2.6-4.0) g/dL Albumin/Globulin Ratio 1.0 (0.9-1.6) Lipase 116 (73-393) U/L Urine Color YELLOW Urine Appearance SLT CLOUDY Urine pH 5.5 (5.0-8.0) Ur Specific [place] >= 1.030 (1.001-1.035) Urine Protein NEGATIVE (NEGATIVE) mg/dL Urine Glucose (UA) NEGATIVE (NEGATIVE) mg/dL Urine Ketones TRACE H (NEGATIVE) mg/dL Urine Occult Blood TRACE-INTACT H (NEGATIVE) Urine Nitrite NEGATIVE (NEGATIVE) Urine Bilirubin SMALL H (NEGATIVE) Urine Ictotest NEGATIVE Urine Urobilinogen 0.2 (<2.0) EU/dL Ur Leukocyte Esterase NEGATIVE (NEGATIVE) U Hyaline Cast (Auto) 0-1 (0-2/LPF) Urine RBC 0-2 (0-2/HPF) Urine WBC 0-1 (0-5/HPF) Ur Epithelial Cells FEW (NONE-FEW) Urine Bacteria FEW (NEGATIVE) Urine Mucus LIGHT (NONE-MOD) Result Diagrams: 07/02/19 06:05 07/02/19 06:05 Sepsis Event Note - Evaluation Sepsis Screening Result: No Definite Risk - Focused Exam Vital Signs: Vital Signs Temp Pulse Resp BP Pulse Ox 07/01/19 21:30 57 L 18 117/78 96 07/01/19 20:24 57 L 18 127/82 96 07/01/19 18:31 35.7 C L 80 19 143/99 H 96 Date Exam was Performed: 07/02/19 Time Exam was Performed: 09:25 - Problem List (1) Intractable nausea and vomiting SNOMED Code(s): 366554739 ICD Code: R11.2 - NAUSEA WITH VOMITING, UNSPECIFIED Status: Acute Current Visit: Yes (2) Transaminitis SNOMED Code(s): 735240137, 856505090 ICD Code: R74.0 - NONSPEC ELEV OF LEVELS OF TRANSAMNS & LACTIC ACID DEHYDRGNSE Status: Acute Current Visit: Yes Problem List Initiated/Reviewed/Updated: Yes Orders Last 24hrs: Active Orders 24 hr Category Date Time Status Admission Status [Patient Status] [ADT] Stat ADT 07/01/19 21:34 Active Antiembolic Devices [RC] PER UNIT ROUTINE Care 07/01/19 22:39 Active Oxygen Therapy [RC] PRN Care 07/01/19 22:38 Active RT Aerosol Therapy [RC] ASDIRECTED Care 07/01/19 22:44 Active VTE/DVT Education [RC] PER UNIT ROUTINE Care 07/01/19 22:38 Active Vital Signs [RC] Q4H Care 07/01/19 22:38 Active Nothing per Oral Now Diet [DIET] Diet 07/01/19 Dinner Active CBC WITH AUTO DIFF [HEME] AM Lab 07/02/19 05:11 Ordered CMP [COMPREHENSIVE METABOLIC PN,CMP] [CHEM] AM Lab 07/02/19 05:11 Ordered HEPATITIS PANEL (4) [REF] Routine Lab 07/02/19 05:00 Ordered MAGNESIUM [CHEM] AM Lab 07/02/19 05:11 Ordered PHOSPHORUS [CHEM] AM Lab 07/02/19 05:11 Ordered Albuterol/Ipratropium [DuoNeb 3.0-0.5 MG/3 ML] Med 07/01/19 22:38 Ordered 3 ml NEB Q4HRRT PRN Lactated Ringers [Ringers, Lactated] 1,000 ml Med 07/01/19 22:45 Ordered IV ASDIRECTED Morphine Med 07/01/19 22:38 Ordered 2 mg IVPUSH Q4H PRN Ondansetron [Zofran] Med 07/01/19 22:38 Ordered 4 mg IVPUSH Q4H PRN Sodium Chloride 0.9% [Normal Saline] 1,000 ml Med 07/01/19 21:26 Active IV STAT Sodium Chloride 0.9% [Saline Flush] Med 07/01/19 19:06 Active 10 ml FLUSH ASDIRECTED PRN Sodium Chloride 0.9% [Saline Flush] Med 07/01/19 19:06 Active 2.5 ml FLUSH ASDIRECTED PRN Saline Lock Insert [OM.PC] Stat Ot 07/01/19 19:06 Ordered Sequential Compression Device [OM.PC] Per Unit Routine Ot 07/01/19 22:38 Ordered Medication Orders Albuterol/Ipratropium (Duoneb 3.0-0.5 Mg/3 Ml) 3 ml NEB Q4HRRT PRN PRN Reason: Shortness Of Breath/wheezing Sodium Chloride (Normal Saline) 1,000 mls @ 125 mls/hr IV STAT ONE Stop: 07/02/19 05:25 Last Admin: 07/01/19 21:33 Dose: 125 mls/hr Lactated Ringer's (Ringers, Lactated) 1,000 mls @ 125 mls/hr IV ASDIRECTED LESLY Morphine Sulfate (Morphine) 2 mg IVPUSH Q4H PRN PRN Reason: Pain (severe 7-10) Stop: 07/02/19 22:39 Ondansetron HCl (Zofran) 4 mg IVPUSH Q4H PRN PRN Reason: Nausea/Vomiting Sodium Chloride (Saline Flush) 10 ml FLUSH ASDIRECTED PRN PRN Reason: Keep Vein Open Sodium Chloride (Saline Flush) 2.5 ml FLUSH ASDIRECTED PRN PRN Reason: Keep Vein Open Assessment/Plan Comment:: 63 y/o F admitted for Intractable N/V, lab work reveals transaminitis No Leucocytosis, No alcohol use, lipase normal, US liver unremarkable Likely Viral gastroenteritis Keep NPO for now Start IVF for hydration Start IV Zofran ans IV Protonix Will check Hepatitis medical review coordinator and replete electrolytes DVT ppx with SCD
[2019-07-01] MEDS ORDERED: Potassium Chloride Riders 40 MEQ in Premix Bag 1 BAG IV ONE (23:05)
[2019-07-01] MEDS ORDERED: Labetalol 100 MG/20 ML MDV IVPUSH PRN (23:08)
[2019-07-01] MEDS ORDERED: diphenhydrAMINE 50 MG/ML SDV IVPUSH ONE (23:13)
[2019-07-02] MEDS: Pantoprazole 40 MG in Sodium Chloride 0.9% 10 ML IV SCH ×2 (03:20→08:33)
[2019-07-02] MEDS ORDERED: diphenhydrAMINE 50 MG/ML SDV ONE (03:33)
[2019-07-02] MEDS: Ondansetron 4 MG/2 ML SDV IVPUSH PRN ×4 (03:41→20:31)
[2019-07-02] MEDS: Lactated Ringers 1,000 ML IV SCH ×3 (06:08→23:46)
[2019-07-02] MEDS: Levothyroxine 25 MCG Tab PO SCH (06:11)
[2019-07-02 06:47] LABS: BLOOD UREA NITROGEN,BUN 6 mg/dL (7.0-18.0); CARBON DIOXIDE,CO2 26.5 mmol/L (21.0-32.0); CHLORIDE,CL 104 mmol/L (98-107); GLUCOSE RANDOM 121 mg/dL (74-106); SODIUM,NA 141 mmol/L (136-145)
[2019-07-02 07:52] LABS: HEMOGLOBIN A1C 5.9 % (4.5-6.2)
--- NOTE | 2019-07-02 14:26 | PCM.PN ---
- General Info Date of Service: 07/02/19 Subjective Update: No acute events overnight. Feeling better but still nauseous. Will try clear liquids today. - Patient Data Vitals - Most Recent: Last Vital Signs Temp 36.7 C 07/02/19 11:00 Pulse 60 07/02/19 11:00 Resp 16 07/02/19 11:00 BP 146/75 H 07/02/19 11:00 Pulse Ox 96 07/02/19 11:00 Weight - Most Recent: 90.718 kg I&O - Last 24 Hours: Intake & Output 07/01/19 07/02/19 07/02/19 22:59 06:59 14:59 Intake Total 1010 Output Total 550 Balance 460 Lab Results Last 24 Hours: Laboratory Results - last 24 hr 07/01/19 07/01/19 07/01/19 Range/Units 19:25 19:25 21:00 WBC 5.24 (4.0-11.0) K/uL RBC 5.04 (4.30-5.90) M/uL Hgb 14.4 (12.0-16.0) g/dL Hct 43.2 (36.0-46.0) % MCV 85.7 (80.0-98.0) fL MCH 28.6 (27.0-32.0) pg MCHC 33.3 (31.0-37.0) g/dL RDW Std Deviation 41.6 (28.0-62.0) fl RDW Coeff of Juarez 13 (11.0-15.0) % Plt Count 212 (150-400) K/uL MPV 10.00 (7.40-12.00) fL Neut % (Auto) 54.9 (48.0-80.0) % Lymph % (Auto) 34.7 (16.0-40.0) % Colbert % (Auto) 9.2 (0.0-15.0) % Eos % (Auto) 0.8 (0.0-7.0) % Baso % (Auto) 0.4 (0.0-1.5) % Neut # (Auto) 2.9 (1.4-5.7) K/uL Lymph # (Auto) 1.8 (0.6-2.4) K/uL Colbert # (Auto) 0.5 (0.0-0.8) K/uL Eos # (Auto) 0.0 (0.0-0.7) K/uL Baso # (Auto) 0.0 (0.0-0.1) K/uL Nucleated RBC % 0.0 /100WBC Nucleated RBCs # 0 K/uL Sodium 140 (136-145) mmol/L Potassium 3.1 L (3.5-5.1) mmol/L Chloride 101 (98-107) mmol/L Carbon Dioxide 27.3 (21.0-32.0) mmol/L BUN 9 (7.0-18.0) mg/dL Creatinine 1.0 (0.6-1.0) mg/dL Est Cr Clr Drug Dosing 58.61 mL/min Estimated GFR (MDRD) 55.6 ml/min Glucose 151 H (74-106) mg/dL Hemoglobin A1c (4.5-6.2) % Calcium 8.9 (8.5-10.1) mg/dL Phosphorus (2.6-4.7) mg/dL Magnesium (1.8-2.4) mg/dL Total Bilirubin 1.0 (0.2-1.0) mg/dL AST 155 H (15-37) IU/L ALT 115 H (14-63) IU/L Alkaline Phosphatase 126 H (46-116) U/L Total Protein 7.4 (6.4-8.2) g/dL Albumin 3.7 (3.4-5.0) g/dL Globulin 3.7 (2.6-4.0) g/dL Albumin/Globulin Ratio 1.0 (0.9-1.6) Lipase 116 (73-393) U/L Urine Color YELLOW Urine Appearance SLT CLOUDY Urine pH 5.5 (5.0-8.0) Ur Specific [place] >= 1.030 (1.001-1.035) Urine Protein NEGATIVE (NEGATIVE) mg/dL Urine Glucose (UA) NEGATIVE (NEGATIVE) mg/dL Urine Ketones TRACE H (NEGATIVE) mg/dL Urine Occult Blood TRACE-INTACT H (NEGATIVE) Urine Nitrite NEGATIVE (NEGATIVE) Urine Bilirubin SMALL H (NEGATIVE) Urine Ictotest NEGATIVE Urine Urobilinogen 0.2 (<2.0) EU/dL Ur Leukocyte Esterase NEGATIVE (NEGATIVE) U Hyaline Cast (Auto) 0-1 (0-2/LPF) Urine RBC 0-2 (0-2/HPF) Urine WBC 0-1 (0-5/HPF) Ur Epithelial Cells FEW (NONE-FEW) Urine Bacteria FEW (NEGATIVE) Urine Mucus LIGHT (NONE-MOD) 07/02/19 07/02/19 07/02/19 Range/Units 06:05 06:05 06:05 WBC 5.70 (4.0-11.0) K/uL RBC 4.61 (4.30-5.90) M/uL Hgb 13.1 (12.0-16.0) g/dL Hct 39.4 (36.0-46.0) % MCV 85.5 (80.0-98.0) fL MCH 28.4 (27.0-32.0) pg MCHC 33.2 (31.0-37.0) g/dL RDW Std Deviation 41.2 (28.0-62.0) fl RDW Coeff of Juarez 13 (11.0-15.0) % Plt Count 233 (150-400) K/uL MPV 10.10 (7.40-12.00) fL Neut % (Auto) 74.4 (48.0-80.0) % Lymph % (Auto) 18.6 (16.0-40.0) % Colbert % (Auto) 6.8 (0.0-15.0) % Eos % (Auto) 0.0 (0.0-7.0) % Baso % (Auto) 0.2 (0.0-1.5) % Neut # (Auto) 4.2 (1.4-5.7) K/uL Lymph # (Auto) 1.1 (0.6-2.4) K/uL Colbert # (Auto) 0.4 (0.0-0.8) K/uL Eos # (Auto) 0.0 (0.0-0.7) K/uL Baso # (Auto) 0.0 (0.0-0.1) K/uL Nucleated RBC % 0.0 /100WBC Nucleated RBCs # 0 K/uL Sodium 141 (136-145) mmol/L Potassium 4.0 (3.5-5.1) mmol/L Chloride 104 (98-107) mmol/L Carbon Dioxide 26.5 (21.0-32.0) mmol/L BUN 6 L (7.0-18.0) mg/dL Creatinine 0.8 (0.6-1.0) mg/dL Est Cr Clr Drug Dosing 73.27 mL/min Estimated GFR (MDRD) > 60.0 ml/min Glucose 121 H (74-106) mg/dL Hemoglobin A1c 5.9 (4.5-6.2) % Calcium 8.7 (8.5-10.1) mg/dL Phosphorus 3.6 (2.6-4.7) mg/dL Magnesium 2.0 (1.8-2.4) mg/dL Total Bilirubin 0.9 (0.2-1.0) mg/dL AST 65 H (15-37) IU/L ALT 89 H (14-63) IU/L Alkaline Phosphatase 109 (46-116) U/L Total Protein 6.8 (6.4-8.2) g/dL Albumin 3.5 (3.4-5.0) g/dL Globulin 3.3 (2.6-4.0) g/dL Albumin/Globulin Ratio 1.1 (0.9-1.6) Lipase (73-393) U/L Urine Color Urine Appearance Urine pH (5.0-8.0) Ur Specific [place] (1.001-1.035) Urine Protein (NEGATIVE) mg/dL Urine Glucose (UA) (NEGATIVE) mg/dL Urine Ketones (NEGATIVE) mg/dL Urine Occult Blood (NEGATIVE) Urine Nitrite (NEGATIVE) Urine Bilirubin (NEGATIVE) Urine Ictotest Urine Urobilinogen (<2.0) EU/dL Ur Leukocyte Esterase (NEGATIVE) U Hyaline Cast (Auto) (0-2/LPF) Urine RBC (0-2/HPF) Urine WBC (0-5/HPF) Ur Epithelial Cells (NONE-FEW) Urine Bacteria (NEGATIVE) Urine Mucus (NONE-MOD) Josue Results Last 24 Hours: Microbiology 07/02/19 04:45 Influenza Type A Antigen Screen - Final Nasopharyngeal Swab NEGATIVE INFLUENZA A VIRUS AG REFERENCE RANGE: NEGATIVE Influenza Type B Antigen Screen - Final NEGATIVE INFLUENZA B VIRUS AG REFERENCE RANGE: NEGATIVE Med Orders - Current: Current Medications Albuterol/Ipratropium (Duoneb 3.0-0.5 Mg/3 Ml) 3 ml NEB Q4HRRT PRN PRN Reason: Shortness Of Breath/wheezing Lactated Ringer's (Ringers, Lactated) 1,000 mls @ 125 mls/hr IV ASDIRECTED [facility] [place] Last Admin: 07/02/19 06:08 Dose: 125 mls/hr Pantoprazole Sodium 40 mg/ (Sodium Chloride) 10 mls @ 300 mls/hr IV DAILY [facility] [place] Last Admin: 07/02/19 08:33 Dose: 300 mls/hr Labetalol HCl (Normodyne) 10 mg IVPUSH Q6H PRN; Protocol PRN Reason: Hypertension Levothyroxine Sodium (Levothyroxine) 50 mcg PO MoWeFr@0600 [facility] [place] Levothyroxine Sodium (Levothyroxine) 25 mcg PO SuTuThSa@0600 [facility] [place] Last Admin: 07/02/19 06:11 Dose: 25 mcg Morphine Sulfate (Morphine) 2 mg IV Q4H PRN PRN Reason: Pain (severe 7-10) Ondansetron HCl (Zofran) 4 mg IVPUSH Q4H PRN PRN Reason: Nausea/Vomiting Last Admin: 07/02/19 08:34 Dose: 4 mg Sodium Chloride (Saline Flush) 10 ml FLUSH ASDIRECTED PRN PRN Reason: Keep Vein Open Sodium Chloride (Saline Flush) 2.5 ml FLUSH ASDIRECTED PRN PRN Reason: Keep Vein Open Discontinued Medications Diphenhydramine HCl (Benadryl) 25 mg IVPUSH ONETIME ONE Stop: 07/01/19 23:14 Last Admin: 07/02/19 03:40 Dose: 25 mg Diphenhydramine HCl (Benadryl) Confirm Administered Dose 50 mg .ROUTE .STK-MED ONE Stop: 07/02/19 03:34 Last Admin: 07/02/19 03:44 Dose: Not Given Sodium Chloride (Normal Saline) 1,000 mls @ 999 mls/hr IV STAT ONE Stop: 07/01/19 20:06 Last Admin: 07/01/19 19:31 Dose: 999 mls/hr Sodium Chloride (Normal Saline) 1,000 mls @ 125 mls/hr IV STAT ONE Stop: 07/02/19 05:25 Last Admin: 07/01/19 21:33 Dose: 125 mls/hr Potassium Chloride 40 meq/ (Premix) 100 mls @ 25 mls/hr IV ONETIME ONE Stop: 07/02/19 03:04 Last Admin: 07/02/19 03:44 Dose: 25 mls/hr Metoclopramide HCl (Reglan) 10 mg IV ONETIME ONE Stop: 07/01/19 21:50 Last Admin: 07/01/19 21:53 Dose: 10 mg Ondansetron HCl (Zofran Odt) 4 mg PO STAT ONE Stop: 07/01/19 18:55 Last Admin: 07/01/19 19:32 Dose: Not Given Ondansetron HCl (Zofran) 4 mg IVPUSH ONETIME ONE Stop: 07/01/19 19:19 Last Admin: 07/01/19 19:31 Dose: 4 mg Ondansetron HCl (Zofran) 4 mg IVPUSH ONETIME ONE Stop: 07/01/19 20:10 Last Admin: 07/01/19 20:19 Dose: 4 mg - Exam General: Alert, Oriented, Cooperative, No Acute Distress Lungs: Clear to Auscultation, Normal Respiratory Effort. No: Crackles, Wheezing Cardiovascular: Regular Rate, Regular Rhythm GI/Abdominal Exam: Other (epigastric tenderness, hypoactive bowel sounds. no rebound.) Extremities: Normal Inspection, No Pedal Edema Skin: Warm, Dry Sepsis Event Note - Evaluation Sepsis Screening Result: No Definite Risk - Focused Exam Vital Signs: Vital Signs Temp Pulse Resp BP Pulse Ox 07/02/19 11:00 36.7 C 60 16 146/75 H 96 07/02/19 07:10 36.1 C 60 18 149/68 H 95 07/02/19 04:00 36.8 C 61 18 140/70 95 Date Exam was Performed: 07/02/19 Time Exam was Performed: 14:23 - Problem List Review Problem List Initiated/Reviewed/Updated: Yes - Plan Plan:: A: 1. Nausea, vomiting likely 2/2 viral gastroenteritis 2. Elevated liver enzymes, improving P: 1. Will start clear liquids and if tolerating may be able to be discharged later today if able to keep fluids down.
[2019-07-03] MEDS: Ondansetron 4 MG/2 ML SDV IVPUSH PRN ×2 (00:59→05:10)
[2019-07-03] MEDS: Levothyroxine 25 MCG Tab PO SCH (05:10)
[2019-07-03] MEDS: Lactated Ringers 1,000 ML IV SCH (08:33)
[2019-07-03] MEDS: Pantoprazole 40 MG in Sodium Chloride 0.9% 10 ML IV SCH (08:57)
--- NOTE | 2019-07-03 11:38 | PCM.DCSUM1 ---
Discharge Summary - Hospital Course Diagnosis: Stroke: No - Discharge Data Discharge Date: 07/03/19 Discharge Disposition: Home, Self-Care 01 Condition: Fair - Referral to Home Health Primary Care Physician: PCP None - Discharge Diagnosis/Problem(s) (1) Intractable nausea and vomiting SNOMED Code(s): 310208670 ICD Code: R11.2 - NAUSEA WITH VOMITING, UNSPECIFIED Status: Acute Current Visit: Yes (2) Transaminitis SNOMED Code(s): 291209014, [id number] ICD Code: R74.0 - NONSPEC ELEV OF LEVELS OF TRANSAMNS & LACTIC ACID DEHYDRGNSE Status: Acute Current Visit: Yes - Discharge Plan *PRESCRIPTION DRUG MONITORING PROGRAM REVIEWED*: No *COPY OF PRESCRIPTION DRUG MONITORING REPORT IN PATIENT VIDAL: No Prescriptions/Med Rec: Ondansetron [Zofran ODT] 4 mg PO Q6H PRN #21 tab.dis PRN Reason: Nausea/Vomiting Pantoprazole Sodium [Protonix] 40 mg PO ACBREAKFAST 10 Days #10 tablet. Home Medications: Home Meds Levothyroxine Sodium [Synthroid] 25 mcg PO ASDIRECTED 05/24/18 [History] Levothyroxine 50 mcg PO ASDIRECTED 05/25/18 [History] Ondansetron [Zofran ODT] 4 mg PO Q6H PRN #21 tab.dis 07/03/19 [Rx] Pantoprazole Sodium [Protonix] 40 mg PO ACBREAKFAST 10 Days #10 tablet. [Rx] Forms: ED Department Discharge Referrals: PCP,None [Primary Care Provider] - - Patient Data Vitals - Most Recent: Last Vital Signs Temp 36.5 C 07/03/19 07:10 Pulse 65 07/03/19 07:10 Resp 18 07/03/19 07:10 BP 146/77 H 07/03/19 07:10 Pulse Ox 96 07/03/19 07:10 Weight - Most Recent: 90.718 kg I&O - Last 24 hours: Intake & Output 07/02/19 07/03/19 07/03/19 22:59 06:59 14:59 Intake Total 1767 1481 Output Total 900 2950 Balance 867 -1469 Med Orders - Current: Current Medications Albuterol/Ipratropium (Duoneb 3.0-0.5 Mg/3 Ml) 3 ml NEB Q4HRRT PRN PRN Reason: Shortness Of Breath/wheezing Lactated Ringer's (Ringers, Lactated) 1,000 mls @ 125 mls/hr IV ASDIRECTED [facility] Last Admin: 07/03/19 08:33 Dose: 125 mls/hr Pantoprazole Sodium 40 mg/ (Sodium Chloride) 10 mls @ 300 mls/hr IV DAILY [facility] Last Admin: 07/03/19 08:57 Dose: 300 mls/hr Labetalol HCl (Normodyne) 10 mg IVPUSH Q6H PRN; Protocol PRN Reason: Hypertension Levothyroxine Sodium (Levothyroxine) 50 mcg PO MoWeFr@0600 [facility] Levothyroxine Sodium (Levothyroxine) 25 mcg PO SuTuThSa@0600 [facility] Last Admin: 07/03/19 05:10 Dose: 25 mcg Morphine Sulfate (Morphine) 2 mg IV Q4H PRN PRN Reason: Pain (severe 7-10) Ondansetron HCl (Zofran) 4 mg IVPUSH Q4H PRN PRN Reason: Nausea/Vomiting Last Admin: 07/03/19 05:10 Dose: 4 mg Sodium Chloride (Saline Flush) 10 ml FLUSH ASDIRECTED PRN PRN Reason: Keep Vein Open Sodium Chloride (Saline Flush) 2.5 ml FLUSH ASDIRECTED PRN PRN Reason: Keep Vein Open Discontinued Medications Diphenhydramine HCl (Benadryl) 25 mg IVPUSH ONETIME ONE Stop: 07/01/19 23:14 Last Admin: 07/02/19 03:40 Dose: 25 mg Diphenhydramine HCl (Benadryl) Confirm Administered Dose 50 mg .ROUTE .STK-MED ONE Stop: 07/02/19 03:34 Last Admin: 07/02/19 03:44 Dose: Not Given Sodium Chloride (Normal Saline) 1,000 mls @ 999 mls/hr IV STAT ONE Stop: 07/01/19 20:06 Last Admin: 07/01/19 19:31 Dose: 999 mls/hr Sodium Chloride (Normal Saline) 1,000 mls @ 125 mls/hr IV STAT ONE Stop: 07/02/19 05:25 Last Admin: 07/01/19 21:33 Dose: 125 mls/hr Potassium Chloride 40 meq/ (Premix) 100 mls @ 25 mls/hr IV ONETIME ONE Stop: 07/02/19 03:04 Last Admin: 07/02/19 03:44 Dose: 25 mls/hr Metoclopramide HCl (Reglan) 10 mg IV ONETIME ONE Stop: 07/01/19 21:50 Last Admin: 07/01/19 21:53 Dose: 10 mg Ondansetron HCl (Zofran Odt) 4 mg PO STAT ONE Stop: 07/01/19 18:55 Last Admin: 07/01/19 19:32 Dose: Not Given Ondansetron HCl (Zofran) 4 mg IVPUSH ONETIME ONE Stop: 07/01/19 19:19 Last Admin: 07/01/19 19:31 Dose: 4 mg Ondansetron HCl (Zofran) 4 mg IVPUSH ONETIME ONE Stop: 07/01/19 20:10 Last Admin: 07/01/19 20:19 Dose: 4 mg
[2019-07-03 11:41] VITALS: BP 151/72; PULSE 60
[2019-07-04] MEDS ORDERED: Levothyroxine 25 MCG Tab PO SCH (06:00)
== END 2019-07-03 12:30 | disposition home or self-care (01) ==
LOC: MW.ED 18:21 → MW.MS 21:34
PROVIDERS: ADMIT Student in an Organized Health Care Education/Training Program; ATTEND Student in an Organized Health Care Education/Training Program
DX: R11.2 Nausea with vomiting, unspecified (principal); R74.0 Nonspecific elevation of levels of transaminase and lactic acid dehydrogenase [LDH]; K21.9 Gastro-esophageal reflux disease without esophagitis; E03.9 Hypothyroidism, unspecified; E66.9 Obesity, unspecified; Z68.29 Body mass index [BMI] 29.0-29.9, adult; Z87.891 Personal history of nicotine dependence; Z88.2 Allergy status to sulfonamides; Z88.8 Allergy status to other drugs, medicaments and biological substances; Z79.899 Other long term (current) drug therapy
CPT/HCPCS: 36415; 76705; 80053; 80074; 81001; 83036; 83690; 83735; 84100; 85025; 87804; 96361; 96374; 96375; 99285; A9270; C9113; J1200; J2405; J2765; J3480; J7030; J7050; J7120; 96365; 96366; 96376; G0378